=== PATIENT | female | born 1995 | race African-American/Black ===

== ENCOUNTER 2019-10-04 15:53 | Emergency (ER) | payer OTHER ==
[~2019-10-04] VITALS: Ht 157.5 cm; Wt 54.0 kg
[2019-10-04 16:00] VITALS: BP 108/70
[2019-10-04] MEDS ORDERED: AUGMENTIN 875-1 EACH PO (16:07)
== END 2019-10-04 16:26 | disposition home or self-care (01) ==
LOC: EDSEX 15:53 → M.ERS 15:53
DX: H66.91 Otitis media, unspecified, right ear (principal); J45.909 Unspecified asthma, uncomplicated; Z86.2 Personal history of diseases of the blood and blood-forming organs and certain disorders involving the immune mechanism; Z88.6 Allergy status to analgesic agent; Z88.8 Allergy status to other drugs, medicaments and biological substances